=== PATIENT | male | born 2000 | race African-American/Black ===

== ENCOUNTER 2021-03-22 04:54 | Emergency (ER) | payer OTHER ==
[~2021-03-22] VITALS: Ht 170.2 cm; Wt 53.1 kg
--- NOTE | 2021-03-22 05:10 | NUR ---
INITIAL PT CONTACT. PT C/O ABD PAIN, N/V AND POSSIBLE CONSTIPATION X3 DAYS. PT DENIES ANY URINARY SYMPTOMS. SITTING UPRIGHT ON GURNEY, NADN, VSS. PT DENIES ANY NEEDS AT THIS TIME. CALL LIGHT AND PERSONAL BELONGINGS WITHIN REACH.
[2021-03-22] MEDS ORDERED: DIPHENHYDRAMINE 50 MG/ML, 1ML ONE (05:22)
[2021-03-22] MEDS ORDERED: ONDANSETRON 2MG/ML, 2ML ONE (05:22)
[2021-03-22] MEDS ORDERED: METOCLOPRAMIDE 5 MG/ML, 2ML ONE (05:22)
[2021-03-22] MEDS ORDERED: DIPHENHYDRAMINE 50 MG/ML, 1ML IV ONE (05:30)
[2021-03-22] MEDS ORDERED: METOCLOPRAMIDE 5 MG/ML, 2ML IVPush ONE (05:30)
[2021-03-22] MEDS ORDERED: SODIUM CHLORIDE 0.9% 1,000ML IVBOLUS ONE (05:30)
[2021-03-22] MEDS ORDERED: ONDANSETRON 2MG/ML, 2ML IVPush ONE (05:30)
[2021-03-22 05:46] LABS: BASOPHILS % (AUTO) 1 % (0-1); EOSINOPHILS % (AUTO) 0 % (1-7); LYMPHOCYTES % (AUTO) 21 % (22-44); MEAN CORPUSCULAR HEMOGLOBIN 25.2 pg (27.5-34.5); MEAN CORPUSCULAR HGB CONC 32.4 g/dL (33.2-36.2); MEAN PLATELET VOLUME 9.4 fL (7.4-10.4); MONOCYTES % (AUTO) 10 % (2-9); NEUTROPHILS % (AUTO) 69 % (42-75); PLATELET COUNT 182 x10^3/uL (130-400); RED BLOOD COUNT 5.76 x10^6/uL (4.38-5.82); RED CELL DISTRIBUTION WIDTH 15.7 % (9.4-14.8)
[2021-03-22 06:01] LABS: ALANINE AMINOTRANSFERASE 23 U/L (12-78); ALBUMIN 3.6 g/dL (3.4-5.0); ANION GAP 6 mmol/L (5-15); CHLORIDE 110 mmol/L (98-107); CREATININE 1.25 mg/dL (0.7-1.3)
[2021-03-22 06:03] LABS: ALKALINE PHOSPHATASE 89 U/L (45-117); BILIRUBIN,TOTAL 1.2 mg/dL (0.2-1.0); TOTAL PROTEIN 7.5 g/dL (6.4-8.2)
[2021-03-22] MEDS ORDERED: HALOPERIDOL 5 MG/ML ONE (06:33)
--- NOTE | 2021-03-22 06:42 | NUR ---
PT REPORTS INCREASED/PERSISTENT PAIN AND REQUESTING ADDITIONAL PAIN MEDICATION. ERP AWARE. PT MEDICATED PER EMAR, NO ADDITIONAL NEEDS AT THIS TIME. CALL LIGHT AND PERSONAL BELONGINGS WITHIN REACH.
--- NOTE | 2021-03-22 06:52 | NUR ---
REPORT TO MARY SAMAYOA
[2021-03-22] MEDS ORDERED: HALOPERIDOL 5 MG/ML IM PRN (07:00)
[2021-03-22 07:22] VITALS: BP 100/58
--- NOTE | 2021-03-22 07:22 | NUR ---
PT RESTING COMFORTABLY ON GURNEY. NO VOMITTING SINCE MEDS. PT TO BE DC.
== END 2021-03-22 07:46 | disposition home or self-care (01) ==
LOC: ED 06:05
DX: R10.84 Generalized abdominal pain (principal); R11.2 Nausea with vomiting, unspecified; E86.0 Dehydration; F12.10 Cannabis abuse, uncomplicated
CPT/HCPCS: 36415; 80053; 83690; 85025; 96361; 96372; 96374; 96375; 99284; J1200; J1630; J2405; J2765; J7030

== ENCOUNTER 2021-03-22 18:27 | Emergency (ER) | payer OTHER ==
[~2021-03-22] VITALS: Ht 168.9 cm; Wt 54.4 kg
[2021-03-22 19:00] VITALS: BP 118/70
--- NOTE | 2021-03-22 20:52 | NUR ---
NIL X 1
--- NOTE | 2021-03-22 21:55 | NUR ---
NIL X 2
--- NOTE | 2021-03-22 22:06 | NUR ---
NIL X 3
== END 2021-03-22 22:08 | disposition left against medical advice (07) ==
LOC: ED 19:00
DX: R10.84 Generalized abdominal pain (principal); F17.200 Nicotine dependence, unspecified, uncomplicated
CPT/HCPCS: 99281